=== PATIENT | female | born 1960 | race Caucasian/White ===

== ENCOUNTER 2017-09-02 20:24 | Emergency (ER) | payer BC, OTHER ==
[2017-09-02] MEDS ORDERED: ASPIRIN 81 MG TABLET, CHEWABLE PO ONE (21:00)
--- NOTE | 2017-09-02 21:38 | RADIOLOGY REPORT (SQ) ---
EXAM DESCRIPTION: CHEST SINGLE VIEW COMPLETED DATE/TIME: 09/02/2017 9:18 pm REASON FOR STUDY: cp COMPARISON: None. NUMBER OF VIEWS: One view. TECHNIQUE: Single frontal radiographic view of the chest acquired. LIMITATIONS: None. FINDINGS: LUNGS AND PLEURA: No opacities, masses or pneumothorax. No pleural effusion. MEDIASTINUM AND HILAR STRUCTURES: No masses. Contour normal. HEART AND VASCULAR STRUCTURES: Heart normal in size. Normal vasculature. BONES: No acute findings. HARDWARE: None in the chest. OTHER: No other significant finding. IMPRESSION: NO SIGNIFICANT RADIOGRAPHIC FINDING IN THE CHEST. TECHNICAL DOCUMENTATION: JOB ID: [id number] [email or web address]- All Rights Reserved Reading location - IP/workstation name: [email or web address]
[2017-09-02 22:04] LABS: ABSOLUTE BASOPHILS # (AUTO) 0.1 10^3/uL (0.0-0.2); ABSOLUTE EOSINOPHILS # (AUTO) 0.4 10^3/uL (0.0-0.6); ABSOLUTE LYMPHOCYTES (AUTO) 2.7 10^3/uL (0.5-4.7); ABSOLUTE MONOCYTES (AUTO) 0.9 10^3/uL (0.1-1.4); ABSOLUTE NEUT (AUTO) 8.6 10^3/uL (1.7-8.2); BASOPHILS % (AUTO) 0.7 % (0-2); EOSINOPHILS % (AUTO) 2.8 % (0-6); HEMATOCRIT 39.4 % (36.0-47.0); HEMOGLOBIN 12.7 g/dL (12.0-15.5); LYMPHOCYTES % (AUTO) 21.3 % (13-45); MEAN CORPUSCULAR HEMOGLOBIN 28.7 pg (27.0-33.4); MEAN CORPUSCULAR HGB CONC 32.1 g/dL (32.0-36.0); MEAN CORPUSCULAR VOLUME 89 fl (80-97); MONOCYTES % (AUTO) 6.9 % (3-13); PLATELET COUNT 405 10^3/uL (150-450); RED BLOOD COUNT 4.41 10^6/uL (3.72-5.28); RED CELL DISTRIBUTION WIDTH 14.2 % (11.5-14.0); SEGMENTED NEUTROPHILS % (AUTO) 68.3 % (42-78); TOTAL CELLS COUNTED % (AUTO) 100 %; WHITE BLOOD COUNT 12.6 10^3/uL (4.0-10.5)
--- NOTE | 2017-09-02 22:12 | EKG REPORT ---
SEVERITY:- ABNORMAL ECG - SINUS RHYTHM LEFT VENTRICULAR HYPERTROPHY ANTERIOR Q WAVES, POSSIBLY DUE TO LVH : Confirmed by: Joseph Curtis 02-Sep-2017 22:11:47
[2017-09-02 22:20] LABS: ALANINE AMINOTRANSFERASE 62 U/L (9-52); ALBUMIN 4.3 g/dL (3.5-5.0); ALKALINE PHOSPHATASE 178 U/L (38-126); ANION GAP 11 (5-19); ASPARTATE AMINO TRANSFERASE 48 U/L (14-36); BILIRUBIN,DIRECT 0.3 mg/dL (0.0-0.4); BILIRUBIN,TOTAL 0.3 mg/dL (0.2-1.3); BLOOD UREA NITROGEN 15 mg/dL (7-20); CALCIUM 9.9 mg/dL (8.4-10.2); CARBON DIOXIDE 25 mmol/L (22-30); CHLORIDE 109 mmol/L (98-107); CREATINE KINASE 39 U/L (30-135); GLUCOSE 113 mg/dL (75-110); POTASSIUM 5.6 mmol/L (3.6-5.0); SODIUM 145.2 mmol/L (137-145); TOTAL PROTEIN 7.7 g/dL (6.3-8.2)
[2017-09-02 22:33] LABS: TROPONIN I < 0.012 ng/mL
[2017-09-03] MEDS ORDERED: NORMAL SALINE 1000 ML 1,000 ML IV ONE
[2017-09-03] MEDS ORDERED: DOXYCYCLINE HYCLATE 100 MG TABLET PO ONE (00:01)
--- NOTE | 2017-09-03 00:40 | ER Document Report ---
ED General - General Chief Complaint: Breathing Difficulty Stated Complaint: CHEST PAIN Time Seen by Provider: 09/02/17 23:25 Notes: Patient is a 57-year-old female who comes emergency department for chief complaint of sick symptoms for the past 5 days but she states that over the past 5 days her cough is worsening, she has felt intermittent shortness of breath, and she has more pain when she coughs. She also states her energy level has dropped. Unsure of fevers. Symptoms started with congestion and mild sore throat. She denies headaches. Denies abdominal pain. Denies chest pain except with cough. Past medical history of bipolar disorder. Denies smoking. TRAVEL OUTSIDE OF THE [place] IN LAST 30 DAYS: No Past Medical History - General Information source: Patient - Social History Smoking Status: Never Smoker Frequency of alcohol use: None Drug Abuse: None Lives with: Family Family History: Reviewed & Not Pertinent Psychiatric Medical History: Reports: Hx Anxiety, Hx Bipolar Disorder - Immunizations Hx Diphtheria, Pertussis, Tetanus Vaccination: Yes Review of Systems - Review of Systems Constitutional: See HPI EENT: See HPI Cardiovascular: No symptoms reported Respiratory: See HPI Gastrointestinal: No symptoms reported Genitourinary: No symptoms reported Female Genitourinary: No symptoms reported Musculoskeletal: No symptoms reported Skin: No symptoms reported Hematologic/Lymphatic: No symptoms reported Neurological/Psychological: No symptoms reported Physical Exam - Vital signs Vitals: Temp Pulse Resp BP Pulse Ox 98.8 F 78 20 175/82 H 97 09/02/17 20:36 09/02/17 20:36 09/02/17 20:36 09/02/17 20:36 09/02/17 20:36 - Notes Notes: GENERAL: Alert. No acute distress. HEAD: Normocephalic, atraumatic. EYES: Pupils equal, round, and reactive to light. Extraocular movements intact. ENT: Oral mucosa moist, tongue midline. [Nares patent, no nasal septal hematoma , TM's intact.] NECK: Full range of motion. Supple. Trachea midline. LUNGS: Mid to upper right lung with some rhonchi and rales. No wheezing. Clear otherwise. No tachypnea or signs of distress. HEART: Regular rate and rhythm. No murmur ABDOMEN: Soft, non-tender. Non-distended. Bowel sounds present in all 4 quadrants. EXTREMITIES: Moves all 4 extremities spontaneously. No edema, normal radial and dorsalis pedis pulses bilaterally. No cyanosis. BACK: no cervical, thoracic, lumbar midline tenderness. No saddle anesthesia, normal distal neurovascular exam. NEUROLOGICAL: Alert and oriented x3. Normal speech. [cranial nerves II through XII grossly intact]. PSYCH: Patient speaks slightly nervously, maintains poor eye contact, however she is cooperative and oriented SKIN: Warm, dry, normal turgor. No rashes or lesions noted. Course - Re-evaluation Re-evalutation: EKG sinus rhythm with no T-wave inversions or ST segment changes in consecutive leads. Left axis deviation. Negative troponin. These were performed on protocol, patient reporting symptoms of pain only with cough. Patient with no significant congestion on exam, she does have right lung exam suggesting pneumonia, she reports worsening cough and feeling generally worse after having viral syndrome symptoms for several days. Suspect she is developing pneumonia. CBC shows mild leukocytosis with elevation of neutrophils. Chemistry shows some hyperkalemia, this is nonspecific, normal renal functioning, patient was given IV fluids, this was discussed, instead of rechecking now decision was made to have this rechecked closely in close primary care follow-up. Starting on doxycycline for suspected pneumonia although chest x-ray is unremarkable. Discussed follow-up and return precautions, patient and significant other state understanding and agreement. - Vital Signs Vital signs: Temp Pulse Resp BP Pulse Ox 98.8 F 70 18 136/78 H 97 09/03/17 01:15 09/03/17 01:15 09/03/17 01:15 09/03/17 01:15 09/03/17 01:15 - Laboratory Result Diagrams: 09/02/17 21:40 09/02/17 21:40 Laboratory results interpreted by me: 09/02/17 09/02/17 21:40 21:40 WBC 12.6 H RDW 14.2 H Absolute Neutrophils 8.6 H Sodium 145.2 H Potassium 5.6 H Chloride 109 H Est GFR (Non-Af Amer) 54 L Glucose 113 H AST 48 H ALT 62 H Alkaline Phosphatase 178 H Discharge - Discharge Clinical Impression: Cough Upper respiratory infection Qualifiers: URI type: unspecified URI Qualified Code(s): J06.9 - Acute upper respiratory infection, unspecified Condition: Stable Disposition: HOME, SELF-CARE Additional Instructions: Your evaluation is suggestive of developing pneumonia on top of the viral syndrome that you have had. We are treating with doxycycline for this reason. You were also given IV normal saline because your potassium was slightly elevated, this needs to be rechecked on a blood chemistry, follow-up with your primary care to perform this. Return if you worsen including difficulty breathing, spiking fever, or any other concerning or worsening symptoms. Prescriptions: Benzonatate [Tessalon Perles 100 mg Capsule] 100 mg PO Q8HP PRN #20 capsule PRN Reason: Doxycycline Hyclate 100 mg PO BID #14 capsule Referrals: DIMITRIOS BARBOZA MD [Primary Care Provider] - Follow up as needed
[2017-09-03 01:16] VITALS: BP 136/78
== END 2017-09-03 01:16 | disposition home or self-care (01) ==
LOC: ER 20:24
DX: J06.9 Acute upper respiratory infection, unspecified (principal); R06.00 Dyspnea, unspecified; R07.9 Chest pain, unspecified
CPT/HCPCS: 93005; 99284; 36415; 82553; 82550; 85025; 80053; 84484; 71045; 93010; J7030

== ENCOUNTER 2017-09-21 16:49 | Emergency (ER) | payer BC, OTHER ==
[2017-09-21] MEDS ORDERED: ASPIRIN 81 MG TABLET, CHEWABLE PO ONE (17:09)
[2017-09-21] MEDS ORDERED: NORMAL SALINE 1000 ML 1,000 ML IV ONE (17:09)
--- NOTE | 2017-09-21 17:30 | ER Document Report ---
ED Medical Screen (RME) - General Mode of Arrival: Ambulatory Information source: Patient TRAVEL OUTSIDE OF THE [place] IN LAST 30 DAYS: No <FELIPE HADLEY - Last Filed: 09/21/17 17:32> <SOFÍA MORA - Last Filed: 09/21/17 18:00> - General Chief Complaint: Breathing Difficulty Stated Complaint: DIFFICULTY BREATHING Time Seen by Provider: 09/21/17 17:00 Notes: Patient is a 57-year-old female presenting to the emergency department complaining of shortness of breath and flu like symptoms. Patient states that she was diagnosed with pneumonia in this emergency department and discharged with Doxycycline and instructed to follow up. During her follow up visit she was also prescribed Levaquin. She states she began to feel better until recently when she developed shortness of breath, body aches and pain with deep breathing. She states she went to urgent care and was told to come to the emergency department. GENERAL: Alert, interacts well. Appears anxious, shaking. No acute distress. HEAD: Normocephalic, Atraumatic. NECK: Full range of motion. Supple. Trachea midline. LUNGS: Appears short of breath despite clear lung auscultation. HEART: Tachycardic. No murmurs, gallops, or rubs. ABDOMEN: Soft, non-tender. Non-distended. Bowel sounds present in all 4 quadrants. EXTREMITIES: Moves all four extremities spontaneously. PSYCH: Appears anxious. I have greeted and performed a rapid initial assessment of this patient. A comprehensive ED assessment and evaluation of the patient, analysis of test results and completion of the medical decision making process will be conducted by additional ED providers. (FELIPE HADLEY) - Related Data Allergies/Adverse Reactions: iodine Allergy (Verified 09/21/17 16:55) Past Medical History - Social History Chew tobacco use (# tins/day): No Frequency of alcohol use: None Drug Abuse: None Pulmonary Medical History: Reports: Hx Pneumonia Renal/ Medical History: Denies: Hx Peritoneal Dialysis Psychiatric Medical History: Reports: Hx Anxiety, Hx Bipolar Disorder Past Surgical History: Reports: Hx Section - x2, Hx Cholecystectomy, Hx Kidney (Renal Surgery) - lithotripsy, Hx Orthopedic Surgery - ACL x2 - Immunizations Hx Diphtheria, Pertussis, Tetanus Vaccination: Yes <FELIPE HADLEY - Last Filed: 09/21/17 17:32> - Vital signs Vitals: Temp Pulse Resp BP Pulse Ox 98.4 F 120 H 16 147/92 H 98 09/21/17 16:56 09/21/17 16:56 09/21/17 16:56 09/21/17 16:56 09/21/17 16:56 Course - Laboratory Result Diagrams: 09/21/17 17:15 09/21/17 17:15 <FELIPE HADLEY - Last Filed: 09/21/17 17:32> - Laboratory Result Diagrams: 09/21/17 17:15 09/21/17 17:15 <SOFÍA MORA - Last Filed: 09/21/17 18:00> - Vital Signs Vital signs: Temp Pulse Resp BP Pulse Ox 98.4 F 120 H 16 147/92 H 98 09/21/17 16:56 09/21/17 16:56 09/21/17 16:56 09/21/17 16:56 09/21/17 16:56 - Laboratory Laboratory results interpreted by me: 09/21/17 09/21/17 17:15 17:15 WBC 16.7 H Absolute Neutrophils 12.7 H Potassium 3.5 L Est GFR ( Amer) 56 L Est GFR (Non-Af Amer) 46 L Calcium 10.5 H Alkaline Phosphatase 147 H Creatine Kinase 25 L Doctor's Discharge <FELIPE HADLEY - Last Filed: 09/21/17 17:32> <SOFÍA MORA - Last Filed: 09/21/17 18:00> - Discharge Referrals: DIMITRIOS BARBOZA MD [Primary Care Provider] - Follow up as needed
[2017-09-21 17:31] LABS: ABSOLUTE BASOPHILS # (AUTO) 0.2 10^3/uL (0.0-0.2); ABSOLUTE EOSINOPHILS # (AUTO) 0.2 10^3/uL (0.0-0.6); ABSOLUTE LYMPHOCYTES (AUTO) 2.5 10^3/uL (0.5-4.7); ABSOLUTE MONOCYTES (AUTO) 1.1 10^3/uL (0.1-1.4); ABSOLUTE NEUT (AUTO) 12.7 10^3/uL (1.7-8.2); BASOPHILS % (AUTO) 1.1 % (0-2); EOSINOPHILS % (AUTO) 1.3 % (0-6); HEMATOCRIT 40.3 % (36.0-47.0); HEMOGLOBIN 13.3 g/dL (12.0-15.5); LYMPHOCYTES % (AUTO) 14.8 % (13-45); MEAN CORPUSCULAR HEMOGLOBIN 29.2 pg (27.0-33.4); MEAN CORPUSCULAR HGB CONC 33.1 g/dL (32.0-36.0); MEAN CORPUSCULAR VOLUME 88 fl (80-97); MONOCYTES % (AUTO) 6.8 % (3-13); PLATELET COUNT 355 10^3/uL (150-450); RED BLOOD COUNT 4.57 10^6/uL (3.72-5.28); TOTAL CELLS COUNTED % (AUTO) 100 %; WHITE BLOOD COUNT 16.7 10^3/uL (4.0-10.5)
[2017-09-21 17:48] LABS: ALANINE AMINOTRANSFERASE 29 U/L (9-52); ALBUMIN 4.3 g/dL (3.5-5.0); ALKALINE PHOSPHATASE 147 U/L (38-126); ANION GAP 14 (5-19); ASPARTATE AMINO TRANSFERASE 19 U/L (14-36); BILIRUBIN,DIRECT 0.3 mg/dL (0.0-0.4); BILIRUBIN,TOTAL 0.6 mg/dL (0.2-1.3); BLOOD UREA NITROGEN 12 mg/dL (7-20); CALCIUM 10.5 mg/dL (8.4-10.2); CARBON DIOXIDE 26 mmol/L (22-30); CHLORIDE 104 mmol/L (98-107); CREATINE KINASE 25 U/L (30-135); GLUCOSE 107 mg/dL (75-110); LITHIUM 0.7 mEq/L (0.6-1.2); POTASSIUM 3.5 mmol/L (3.6-5.0); SODIUM 144.1 mmol/L (137-145); TOTAL PROTEIN 7.6 g/dL (6.3-8.2)
[2017-09-21 18:00] LABS: CREATINE KINASE MB 0.36 ng/mL (<4.55)
[2017-09-21 18:01] LABS: TROPONIN I < 0.012 ng/mL
--- NOTE | 2017-09-21 18:13 | RADIOLOGY REPORT (SQ) ---
EXAM DESCRIPTION: CHEST SINGLE VIEW COMPLETED DATE/TIME: 09/21/2017 5:59 pm REASON FOR STUDY: recent pna, worsening SOB COMPARISON: 09/02/2017 EXAM PARAMETERS: NUMBER OF VIEWS: One view. TECHNIQUE: Single frontal radiographic view of the chest acquired. RADIATION DOSE: NA LIMITATIONS: None. FINDINGS: LUNGS AND PLEURA: No opacities, masses or pneumothorax. No pleural effusion. MEDIASTINUM AND HILAR STRUCTURES: No masses. Contour normal. HEART AND VASCULAR STRUCTURES: Heart normal in size. Normal vasculature. BONES: No acute findings. HARDWARE: Clips right upper quadrant post cholecystectomy OTHER: No other significant finding. IMPRESSION: NO ACUTE RADIOGRAPHIC FINDING IN THE CHEST. TECHNICAL DOCUMENTATION: JOB ID: [id number] [employer]- All Rights Reserved Reading location - IP/workstation name: [email or web address]
[2017-09-21] MEDS ORDERED: IPRATROPIUM/ALBUTEROL 0.5-2.5 MG/3 ML AMPUL NEB ONE (18:59)
[2017-09-21 19:18] LABS: FREE T4 (FREE THYROXINE) 1.03 ng/dL (0.78-2.19)
[2017-09-21 19:32] LABS: THYROID STIMULATING HORMONE 1.1 uIU/mL (0.47-4.68)
--- NOTE | 2017-09-21 20:40 | RADIOLOGY REPORT (SQ) ---
EXAM DESCRIPTION: NM LUNG VENT/PERF SCAN COMPLETED DATE/TIME: 09/21/2017 8:25 pm REASON FOR STUDY: sob COMPARISON: None. RADIONUCLIDE AND DOSE: 5.3 millicuries TC-99m MAA Intravenous 28.2 millicuries TC-99m DTPA Inhaled aerosol TECHNIQUE: Eight views of the lungs acquired post ventilation of DTPA aerosol. Eight matching views of the lungs acquired following injection of MAA. LIMITATIONS: None. FINDINGS: VENTILATION: Mildly heterogeneous distribution of DTPA aerosol during ventilatory phase. PERFUSION: Perfusion images with mildly heterogeneous activity. No ventilation-perfusion mismatches . OTHER: No other significant finding. IMPRESSION: No ventilation-perfusion mismatches. TECHNICAL DOCUMENTATION: JOB ID: [id number] [place]-72 2010 [employer]- All Rights Reserved Reading location - IP/workstation name: [email or web address]
[2017-09-21] MEDS ORDERED: IBUPROFEN 400 MG TABLET PO ONE (22:25)
--- NOTE | 2017-09-21 22:28 | ER Document Report ---
ED General - General Chief Complaint: Breathing Difficulty Stated Complaint: DIFFICULTY BREATHING Time Seen by Provider: 09/21/17 17:00 Mode of Arrival: Ambulatory Information source: Patient Notes: This is a 57-year-old female with a history of Sjogren's syndrome, bipolar affective disorder, thyroid nodules and recent pneumonia (treated with 10 days of doxycycline followed by Medrol Dosepak followed by levofloxacin and she is currently on her third day of levofloxacin). Patient presents with persistent shortness of breath and feeling like she has infection. TRAVEL OUTSIDE OF THE [place] IN LAST 30 DAYS: No - HPI Onset: Last week Onset/Duration: Gradual Quality of pain: No pain Severity: None Pain Level: Denies Associated symptoms: Shortness of breath. denies: Chest pain, Fever Exacerbated by: Movement Relieved by: Denies Similar symptoms previously: Yes Recently seen / treated by doctor: Yes - Related Data Allergies/Adverse Reactions: iodine Allergy (Verified 09/21/17 16:55) Past Medical History - General Information source: Patient - Social History Smoking Status: Never Smoker Cigarette use (# per day): No Chew tobacco use (# tins/day): No Frequency of alcohol use: None Drug Abuse: None Lives with: Family Family History: Reviewed & Not Pertinent Patient has suicidal ideation: No Patient has homicidal ideation: No Pulmonary Medical History: Reports: Hx Pneumonia Renal/ Medical History: Denies: Hx Peritoneal Dialysis Psychiatric Medical History: Reports: Hx Anxiety, Hx Bipolar Disorder Past Surgical History: Reports: Hx Section - x2, Hx Cholecystectomy, Hx Kidney (Renal Surgery) - lithotripsy, Hx Orthopedic Surgery - ACL x2 - Immunizations Hx Diphtheria, Pertussis, Tetanus Vaccination: Yes Review of Systems - Review of Systems Constitutional: denies: Chills, Fever EENT: Sinus pressure, Sinus discharge Cardiovascular: denies: Chest pain, Palpitations Respiratory: Cough, Short of breath Gastrointestinal: No symptoms reported Genitourinary: No symptoms reported Female Genitourinary: No symptoms reported Musculoskeletal: No symptoms reported Skin: No symptoms reported Hematologic/Lymphatic: No symptoms reported Neurological/Psychological: No symptoms reported Physical Exam - Vital signs Vitals: Temp Pulse Resp BP Pulse Ox 98.4 F 120 H 16 147/92 H 98 09/21/17 16:56 09/21/17 16:56 09/21/17 16:56 09/21/17 16:56 09/21/17 16:56 Notes: Physical exam: GENERAL: A 57-year-old female, alert and oriented 3, no acute distress. HEAD: Atraumatic, normocephalic. EYES: Pupils equal round and reactive to light, extraocular movements intact, sclera anicteric, conjunctiva are normal. ENT: TMs normal, nares patent, oropharynx clear without exudates. Moist mucous membranes. NECK: Normal range of motion, supple without obvious mass or JVD. LUNGS: No obvious wheezing or rhonchi. Patient does have decreased breath sounds bilaterally (she has sounds tight). HEART: Regular rate and rhythm without murmurs, rubs or gallops. ABDOMEN: Soft, normoactive bowel sounds. No tenderness to palpation. No guarding, no rebound. No masses appreciated. EXTREMITIES: Normal range of motion, no pitting or edema. No clubbing or cyanosis. NEUROLOGICAL: Cranial nerves II through XII grossly intact. Normal speech, moving all extremities. PSYCH: Normal mood, normal affect. SKIN: Warm, Dry, normal turgor, no rashes or lesions noted. Course - Re-evaluation Re-evalutation: 09/21/17 22:40 Note: Patient was given a nebulizer treatment at more as a trial for possible bronchospasm (her breath sounds were a bit tight). Her breath sounds are much improved after the nebulizer but she did not tolerate the nebulizer well. She does have a history of anxiety with panic attacks and it made her feel too jittery. The VQ scan showed no evidence of PE. The chest x-ray showed resolution of the pneumonia. She does have a history of leukocytosis which has been worked up by an oncologist in [facility]. She states that her white count was normally in the 11-12,000 range. Her white count today 16.7. She says it has been higher (in this range) since the pneumonia. I will give her a copy of today's labs so that she can follow-up with her primary care doctor. She does have an appointment with her primary care doctor on Friday (2 days). Additionally, the patient' has a history of thyroid nodules and has an appointment in the next week or 2 with an melt house supervisor in [facility]. The thyroid function tests were normal today and I will give her a copy of those to follow-up with the melt house supervisor. - Vital Signs Vital signs: Temp Pulse Resp BP Pulse Ox 97.5 F 120 H 14 128/61 H 99 09/21/17 22:51 09/21/17 16:56 09/21/17 22:51 09/21/17 22:51 09/21/17 22:51 - Laboratory Result Diagrams: 09/21/17 17:15 09/21/17 17:15 Laboratory results interpreted by me: 09/21/17 09/21/17 17:15 17:15 WBC 16.7 H Absolute Neutrophils 12.7 H Potassium 3.5 L Est GFR ( Amer) 56 L Est GFR (Non-Af Amer) 46 L Calcium 10.5 H Alkaline Phosphatase 147 H Creatine Kinase 25 L - Diagnostic Test Radiology reviewed: Image reviewed, Reports reviewed - Chest x-ray shows no infiltrates. VQ scan shows no perfusion defects. - EKG Interpretation by Me Rate: Tachycardia Rhythm: NSR - EKG shows sinus rhythm with a ventricular rate of 104, no acute ST -T wave changes Discharge - Discharge Clinical Impression: Dyspnea, Resolving pneumonia Condition: Stable Disposition: HOME, SELF-CARE Additional Instructions: As we discussed, the chest x-ray showed resolution of the pneumonia. I would complete the antibiotics as previously prescribed by your doctor [facility]. Your white count was 16.7 today which is still in the elevated range. Your electrolytes, thyroid tests and lithium were all normal. The ventilation/ perfusion scan was performed which showed no evidence of blood clots. Recommendations: I would continue your antibiotics. Continue with Mucinex. Your lungs did sound better after the nebulizer but given the side effects ( anxiety), I am going to hold off on an inhaler. Try simply saline nasal spray which is sold in pharmacies/[employer] to keep your sinuses open. Follow-up with your primary doctor as planned on Friday. Bring a copy of all these tests done tonight with you when you go. Return to the emergency room for worsening shortness of breath, or any concerns getting worse. Referrals: DIMITRIOS BARBOZA MD [Primary Care Provider] - 09/23/17
[2017-09-21 22:57] VITALS: BP 128/61
--- NOTE | 2017-09-21 23:43 | EKG REPORT ---
SEVERITY:- ABNORMAL ECG - SINUS TACHYCARDIA LVH WITH SECONDARY REPOLARIZATION ABNORMALITY ANTERIOR INFARCT, OLD : Confirmed by: Joseph Curtis 21-Sep-2017 23:42:56
== END 2017-09-21 23:03 | disposition home or self-care (01) ==
LOC: ER 16:49
DX: J18.9 Pneumonia, unspecified organism (principal); R06.02 Shortness of breath; R05 Cough
CPT/HCPCS: 93005; 94640; 99285; 96360; 36415; 84439; 82553; 82550; 80178; 84443; 85025; 80053; 84484; 71045; 78582; 93010; A9540; A9567; J3490; J7030; J7620; Q9969